=== PATIENT | male | born 1985 | race Caucasian/White ===

== ENCOUNTER 2025-01-06 11:28 | Emergency (ER) | payer OTHER, SELFPAY ==
[2025-01-06 11:30] VITALS: BP 126/90
[2025-01-06 13:00] VITALS: BMI 27.0
--- NOTE | 2025-01-06 13:02 | ED.MUSCINJ ---
HPI-Injury
General
Chief Complaint: Musculo-Skeletal Complaint
Source: patient
Exam Limitations: none
Time Seen by Provider: 01/06/25 12:38
Nursing documentation reviewed up to this point in time: agreed with
History of Present Illness-Injury
Is this injury a work related problem?: No
Is pt an associate of [facility]?: No
Initial Injury comments:
39-year-old male left calf pain playing softball yesterday walking backward, [place] a pop,
Past History
Past History
ED Past Medical History: HTN
ED Past Surgical History: None
Social History
Tobacco: Non-smoker
Alcohol: None
Drug: None
Personal:
Living: with family
Employment: Employed
Review of Systems
Review of Systems
All Other Systems: Not applicable
EENT: Reports no symptoms
Respiratory: Reports no symptoms
Cardiac: Reports no symptoms
ABD/GI: Reports no symptoms
: Reports no symptoms
Musculoskeletal: Reports muscle pain and muscle stiffness
Phy Exam
Physical Exam
Physical Exam:
Physical Exam
General: no apparent distress, not acutely ill
Neck:atraumatic
Lungs: no acute respiratory distress.
Neuro: alert and oriented. no focal neurological deficits
Skin: no rash
Psychiatric: well kept. interactive and cooperative
Extremities: Defect insertion of the left Achilles, positive Noriega test on the left
Injury Course
Orders/Labs/Results
Orders:
Orders
01/06/25 12:54
Ortho Boot Left- Treatment ONCE
Short or tall?: Short
MDM/Problems Addressed
Differential Diagnosis Includes:
achilees tear/strain/gastroc tear/fx
MDM/Problems Addressed:
injury
*Pulse Oximetry
Patient hypoxic: no
*Critical Care Note
Total Time (30-74mins, 75-104mins- exclusive of procedures): Not Applicable
Update Note
Update Note:
clincially suspect achilles tear
will immoblize and refer to ortho for possible operative repair
ED Attending Note
-
Portions of this chart may have been created with voice recognition software.� Occasional wrong word or��sound alike� substitutions may have occurred due to the inherent limitations of voice recognition software.
Discharge Plan
Departure
Patient Disposition: Home (Routine Discharge)
Date of Disposition: 01/06/25
Time of Disposition: 12:56
Patient with high blood pressure during this ER visit?: No
Condition: Good
Discharge Problem:
Achilles rupture, left
Instructions: Achilles Tendon Rupture (DC), Ibuprofen
Referrals:
Jorge Taylor MD [Family Provider, Internal Medicine]
Chaim Lyles MD [Active, Orthopedics] - Next open appointment
Activity Restrictions/Additional Instructions:
Use boot
Followup with Dr Lyles from [facility] orthopedics
Interventions
Interventions:
*Risk Screen - Suicide Last Done: 01/06/25 11:30
*General Assessment Last Done: 01/06/25 11:30
*Neglect/Abuse Screening Last Done: 01/06/25 13:00
*ED- Fall Risk Assessment Last Done: 01/06/25 13:00
*ED COVID-19 Vaccine History Last Done: 01/06/25 13:00
ED-Musculoskeletal Assessment Last Done: 01/06/25 13:00
Discharge Date and Time
Print Language: YAKUT
--- NOTE | 2025-01-06 13:34 | EDRN ---
Reviewed discharge instructions with patient. Verbalized understanding. Ambulated with steady gait to the lobby.
[2025-01-06 13:35] VITALS: BP 138/99
== END 2025-01-06 13:36 | disposition home or self-care (01) ==
LOC: EMR 11:28
PROVIDERS: EMERGENCY PHYSICIAN Emergency Medicine; FAMILY PHYSICIAN Internal Medicine
DX: S86.012A Strain of left Achilles tendon, initial encounter (principal); X50.1XXA Overexertion from prolonged static or awkward postures, initial encounter; I10 Essential (primary) hypertension
CPT/HCPCS: 99283